=== PATIENT | male | born 1960 | race Caucasian/White ===

== ENCOUNTER → 2023-05-18 | Outpatient (CLI) | payer OTHER ==
[2023-05-18 12:50] LABS: Stool Occult Bld Immuno 1 Negative (NEGATIVE)
== END | disposition home or self-care (01) ==
LOC: LAB 07:05 → LAB SHORT 07:05
PROVIDERS: Family Medicine
DX: Z12.11 Encounter for screening for malignant neoplasm of colon (principal)
CPT/HCPCS: G0328

== ENCOUNTER → 2024-03-21 | Outpatient (CLI) | payer OTHER | LOC: LAB 11:38 → LAB SHORT 11:38 | DX: L08.0 Pyoderma (principal) | CPT/HCPCS: 87070; 87077; 87205 ==